=== PATIENT | male | born 1965 | race Caucasian/White ===

== ENCOUNTER 2019-02-08 11:09 | Outpatient (CLI) | payer OTHER | END 2019-02-08 15:00 | disposition home or self-care (01) | LOC: LAB 11:09 | DX: J11.1 Influenza due to unidentified influenza virus with other respiratory manifestations (principal) ==

== ENCOUNTER 2019-05-23 06:19 | Day surgery (SDC) | payer OTHER ==
[2019-05-23] MEDS ORDERED: MIRALAX17 GM PO (11:51)
[2019-05-23] MEDS ORDERED: NEURONTIN300 MG PO (11:51)
[2019-05-23] MEDS ORDERED: TYLENOL ARTHRI650 MG PO (11:51)
[2019-05-23] MEDS ORDERED: ULTRAM50 MG PO (11:51)
== END 2019-05-23 16:00 | disposition home or self-care (01) ==
LOC: CIR.AMB 06:19
DX: K40.20 Bilateral inguinal hernia, without obstruction or gangrene, not specified as recurrent (principal); K42.9 Umbilical hernia without obstruction or gangrene; D17.6 Benign lipomatous neoplasm of spermatic cord